=== PATIENT | female | born 1950 | race Caucasian/White ===

== ENCOUNTER → 2020-04-27 | Outpatient (REF) ==
[2020-04-27 13:45] LABS: COLLAGEN EPINEPHRINE 117 SECONDS (74-162)
== END ==
LOC: M LAB REF 13:09
DX: M47.817 Spondylosis without myelopathy or radiculopathy, lumbosacral region (principal)

== ENCOUNTER → 2021-02-05 | Outpatient (CLI) | payer OTHER ==
[~2021-02-05] MED LIST: ATOR80TA59 PO; DULO1CAP6 PO; INSUH10VL SC; LANTINJ4 SC; NORT75CA2 PO; RAMI1CAP26 PO
== END ==
LOC: M LABSMTC 10:06
PROVIDERS: ATTEND Anesthesiology
DX: Z01.818 Encounter for other preprocedural examination (principal); Z11.52 Encounter for screening for COVID-19

== ENCOUNTER 2021-02-10 11:24 | Day surgery (SDC) | payer OTHER ==
[~2021-02-10] VITALS: Ht 167.6 cm; Wt 108.5 kg
[~2021-02-10 11:24] MED LIST changes: +NS 1,000 ML IV ONE
--- NOTE | 2021-02-10 14:01 | ROOR ---
Patient Name: Annette Pickens Procedure Date: 02/10/2021 1:46 PM Date of : 1950 Age: 70 Room: [facility] Gender: Female Note Status: Finalized Procedure: Upper Endoscopy + Biopsies Indications: Heartburn, Exclusion of Vega's esophagus Providers: Siddhartha Davis MD Referring MD: KIN MÑUOZ MD Requesting Provider: Medicines: Monitored Anesthesia Care Complications: No immediate complications. Procedure: Pre-Anesthesia Assessment: - The heart rate, respiratory rate, oxygen saturations, blood pressure, adequacy of pulmonary ventilation, and response to care were monitored throughout the procedure. The Endoscope was introduced through the mouth, and advanced to the second part of duodenum. The upper GI endoscopy was accomplished without difficulty. The patient tolerated the procedure well. Findings: The Z-line was irregular and was found 45 cm from the incisors. Multiple biopsies were obtained with cold forceps for evaluation to rule out Vega's Esophagus randomly at the gastroesophageal junction. No other significant abnormalities were identified in a careful examination of the stomach. The exam of the duodenum was otherwise normal. Impression: - Z-line irregular, 45 cm from the incisors. - Multiple biopsies were obtained at the gastroesophageal junction. - The examination was otherwise normal. Recommendation: - Patient has a contact number available for emergencies. The signs and symptoms of potential delayed complications were discussed with the patient. Return to normal activities tomorrow. Written discharge instructions were provided to the patient. - High fiber diet. - Discharge patient to home. - Follow an antireflux regimen. - Continue present medications. - Await pathology results. - Telephone GI clinic for pathology results in 1 week. - Return to referring physician. - The findings and recommendations were discussed with the patient. Procedure Code(s): --- Professional --- 07837, Esophagogastroduodenoscopy, flexible, transoral; with biopsy, single or multiple Diagnosis Code(s): --- Professional --- K22.8, Other specified diseases of esophagus R12, Heartburn CPT copyright 2019 [employer]. All rights reserved. The codes documented in this report are preliminary and upon auditing coder review may be revised to meet current compliance requirements. Siddhartha Davis MD Siddhartha Davis MD 02/10/2021 2:01:17 PM Electronically signed by Siddhartha Davis MD Number of Addenda: 0 Note Initiated On: 02/10/2021 1:46 PM Estimated Blood Loss: Estimated blood loss: none.
[2021-02-10] MEDS ORDERED: propofoL 200 MG/20 ML VIAL As Ordered ONE (14:25)
[2021-02-10] MEDS ORDERED: LIDOCAINE 2% 100MG/5ML SDV (FOR ANES.) As Ordered ONE (14:25)
--- NOTE | 2021-02-10 14:28 | ROOR ---
Patient Name: Annette Pickens Procedure Date: 02/10/2021 1:47 PM Date of : 1950 Age: 70 Room: [facility] Gender: Female Note Status: Finalized Procedure: Total Colonoscopy to Cecum + Bx.+ Carbon Spot Marking Indications: Rectal bleeding, Change in bowel habits Providers: Siddhartha Davis MD Referring MD: KIN MUÑOZ MD Requesting Provider: Medicines: Monitored Anesthesia Care Complications: No immediate complications. Procedure: Pre-Anesthesia Assessment: - The heart rate, respiratory rate, oxygen saturations, blood pressure, adequacy of pulmonary ventilation, and response to care were monitored throughout the procedure. The Colonoscope was introduced through the anus and advanced to the cecum, identified by appendiceal orifice and ileocecal valve. The colonoscopy was performed without difficulty. The patient tolerated the procedure well. The quality of the bowel preparation was excellent. Findings: The perianal and digital rectal examinations were normal. Non-bleeding internal hemorrhoids were found during retroflexion. The hemorrhoids were small and Grade I (internal hemorrhoids that do not prolapse). An ulcerated partially obstructing large mass was found at 20 cm proximal to the anus. The mass was partially circumferential (involving two-thirds of the lumen circumference). The mass measured five cm in length. No bleeding was present. This was biopsied with a cold large-capacity forceps for histology. Area was successfully injected with Spot (carbon black) for tattooing. Multiple small and large-mouthed diverticula were found in the recto-sigmoid colon, sigmoid colon and descending colon. The exam was otherwise without abnormality on direct and retroflexion views. Impression: - Non-bleeding internal hemorrhoids. - Rule out malignancy, partially obstructing tumor at 20 cm proximal to the anus. Biopsied. Injected. - Diverticulosis in the recto-sigmoid colon, in the sigmoid colon and in the descending colon. - The examination was otherwise normal on direct and retroflexion views. - The exam was otherwise normal to the cecum. Recommendation: - Patient has a contact number available for emergencies. The signs and symptoms of potential delayed complications were discussed with the patient. Return to normal activities tomorrow. Written discharge instructions were provided to the patient. - Resume previous diet. - Discharge patient to home. - Continue present medications. - Await pathology results. - Telephone GI clinic for pathology results in 1 week. - Refer to a surgeon at appointment to be scheduled. - The findings and recommendations were discussed with the patient. Procedure Code(s): --- Professional --- 75430, Colonoscopy, flexible; with directed submucosal injection(s), any substance 05131, Colonoscopy, flexible; with biopsy, single or multiple Diagnosis Code(s): --- Professional --- K64.0, First degree hemorrhoids D49.0, Neoplasm of unspecified behavior of digestive system K56.690, Other partial intestinal obstruction K62.5, Hemorrhage of anus and rectum R19.4, Change in bowel habit K57.30, Diverticulosis of large intestine without perforation or abscess without bleeding CPT copyright 2019 [employer]. All rights reserved. The codes documented in this report are preliminary and upon ammonia operator review may be revised to meet current compliance requirements. Siddhartha Davis MD Siddhartha Davis MD 02/10/2021 2:27:43 PM Electronically signed by Siddhartha Davis MD Number of Addenda: 0 Note Initiated On: 02/10/2021 1:47 PM Estimated Blood Loss: Estimated blood loss: none.
[2021-02-10 14:49] VITALS: BP 166/71
== END 2021-02-10 15:00 | disposition home or self-care (01) ==
LOC: M OPP 11:24
PROVIDERS: ATTEND Internal Medicine Gastroenterology
DX: D37.4 Neoplasm of uncertain behavior of colon (principal); K22.89 Other specified disease of esophagus; K64.0 First degree hemorrhoids; K57.30 Diverticulosis of large intestine without perforation or abscess without bleeding; R19.4 Change in bowel habit; R12 Heartburn

== ENCOUNTER 2022-04-21 12:39 | Inpatient (IN) | payer MEDICARE ==
[~2022-04-21] VITALS: Ht 167.6 cm; Wt 88.3 kg
[~2022-04-21 12:39] MED LIST changes: +DEXA4TA PO; +DIPH2.5T15 PO; +DOXY-444 PO; +ELIQ5TAB PO; +ERGO500029 PO; +MAGICMW SS; +METF10004 PO; +METO25TA4 PO; -NS 1,000 ML IV ONE; +ONDA-84 PO; +ONDA8TAB8 PO; +POTA1TAB14 PO; +POTA20EL PO; +PROC10TA5 PO
[2022-04-21 15:20] LABS: BASO % 0.4 % (0.0-1.0); EOS # 0.2 10^3/uL (0.0-0.5); HEMATOCRIT 26.6 % (36.0-47.0); LYMPH # 0.9 10^3/uL (1.5-5.0); LYMPH % 15.1 % (24.0-44.0); MEAN CORPUSCULAR HEMOGLOBIN 33.2 pg (27.0-33.0); MEAN CORPUSCULAR HGB CONC 30.1 g/dl (32.0-36.5); MEAN CORPUSCULAR VOLUME 110.4 fl (80.0-96.0); MONO # 0.4 10^3/uL (0.0-0.8); MONO % 6.5 % (2.0-8.0); NEUTROPHILS # 4.2 10^3/uL (1.5-8.5); NEUTROPHILS % 74.5 % (36.0-66.0); PLATELET COUNT, AUTOMATED 103 10^3/uL (150-450); RED BLOOD COUNT 2.41 10^6/uL (4.00-5.40); WHITE BLOOD COUNT 5.7 10^3/uL (4.0-10.0)
[2022-04-21 15:31] LABS: INR 1.26; PROTHROMBIN TIME 16.1 SECONDS (12.5-14.5)
[2022-04-21] MEDS ORDERED: FAMO1TAB11 PO (15:35)
[2022-04-21] MEDS ORDERED: ASPI-523 PO (15:35)
[2022-04-21] MEDS ORDERED: KETO2CR TOP (15:35)
[2022-04-21] MEDS ORDERED: HOME MED LIST COMPLETE! XX SCH (15:40)
[2022-04-21 15:46] LABS: RSV AMPLIFICATION NEGATIVE (NEGATIVE)
[2022-04-21 15:46] LABS: BILIRUBIN,DIRECT 0.1 MG/DL (<0.4)
[2022-04-21 15:47] LABS: ALBUMIN 2.7 G/DL (3.2-5.2); ALKALINE PHOSPHATASE 301 U/L (46-116); ALT/SGPT 13 U/L (7.0-40); AST/SGOT 24 U/L (<34); BILIRUBIN,TOTAL 0.4 MG/DL (0.3-1.2); BLOOD UREA NITROGEN 20 MG/DL (9-23); CALCIUM LEVEL 7.8 MG/DL (8.3-10.6); CARBON DIOXIDE LEVEL 29 MMOL/L (20-31); CHLORIDE LEVEL 108 MMOL/L (98-107); CK-MB VALUE MASS < 1.0 NG/ML (<3.6); CPK CREATINE PHOSPHOKINASE 66 U/L (34-145); CREATININE FOR GFR 0.96 MG/DL (0.55-1.30); GLOMERULAR FILTRATION RATE > 60.0 (>39); GLUCOSE, FASTING 181 MG/DL (74-106); MB/CK RELATIVE INDEX 1.51 (< OR =4); POTASSIUM SERUM 4.1 MMOL/L (3.5-5.1); SODIUM LEVEL 145 MMOL/L (136-145); TOTAL PROTEIN 5.8 G/DL (5.7-8.2)
[2022-04-21 15:48] LABS: THYROXINE (T4) 9.3 UG/DL (4.5-10.9)
[2022-04-21 15:49] LABS: THYROID STIMULATING HORMONE 3.458 uIU/ML (0.55-4.78)
[2022-04-21] MEDS ORDERED: FUROSEMIDE 40MG/4ML VIAL IV ONE (16:15)
[2022-04-21] MEDS ORDERED: PROCHLORPERAZINE 5MG TAB PO PRN (17:30)
[2022-04-21] MEDS ORDERED: ONDANSETRON 4MG TAB PO PRN (17:30)
[2022-04-21] MEDS ORDERED: FAMOTIDINE 20 MG TAB PO PRN (17:30)
[2022-04-21] MEDS ORDERED: LOMOTIL 2.5MG/0.025MG TABLET PO PRN (17:30)
[2022-04-21] MEDS ORDERED: MAGIC MOUTHWASH SUSPENSION BTL SS PRN (17:30)
[2022-04-21] MEDS ORDERED: ACETAMINOPHEN TAB 650MG DOSE (2X325MG) PO PRN (17:40)
[2022-04-21] MEDS ORDERED: MOM 30ML SUSPENSION UDC PO PRN (17:40)
[2022-04-21] MEDS ORDERED: GLUCOSE 4GM CHEW TABLET PO PRN (18:05)
[2022-04-21] MEDS ORDERED: GLUCAGON INJ 1MG VIAL SC PRN (18:05)
[2022-04-21] MEDS ORDERED: DEXTROSE 50% 50ML SYRINGE IV PRN (18:05)
[2022-04-21] MEDS: INSULIN LISPRO (NovoLOG) PER UNIT SC SCH ×2 (18:38→21:00)
[2022-04-21] MEDS: METOPROLOL TART 25 MG TABLET PO SCH (21:09)
[2022-04-21] MEDS: APIXABAN 5 MG TAB (ELIQUIS) PO SCH (21:09)
[2022-04-21] MEDS: DOCUSATE SODIUM 100MG CAPSULE PO SCH (21:10)
[2022-04-21] MEDS: LEVEMIR (INSULIN DETEMIR) 1 UNITS/0.01ML SC SCH (21:10)
[2022-04-22 05:30] VITALS: BP 190/82
[2022-04-22 06:03] LABS: HEMATOCRIT 26.2 % (36.0-47.0); HEMOGLOBIN 7.8 g/dl (12.0-15.5); MEAN CORPUSCULAR HEMOGLOBIN 32.9 pg (27.0-33.0); MEAN CORPUSCULAR HGB CONC 29.8 g/dl (32.0-36.5); MEAN CORPUSCULAR VOLUME 110.5 fl (80.0-96.0); PLATELET COUNT, AUTOMATED 100 10^3/uL (150-450); RED BLOOD COUNT 2.37 10^6/uL (4.00-5.40); WHITE BLOOD COUNT 5.8 10^3/uL (4.0-10.0)
[2022-04-22 06:25] LABS: MAGNESIUM LEVEL 1.2 MG/DL (1.8-2.4)
[2022-04-22 06:27] LABS: CALCIUM LEVEL 7.9 MG/DL (8.3-10.6); CREATININE FOR GFR 1.12 MG/DL (0.55-1.30); GLOMERULAR FILTRATION RATE 51.2 (>39); POTASSIUM SERUM 3.7 MMOL/L (3.5-5.1)
[2022-04-22] MEDS ORDERED: MAG SULF 1GM/100ML (MAG RUN) 1 GM in IV 1 EA IV ONE (06:35)
[2022-04-22] MEDS: INSULIN LISPRO (NovoLOG) PER UNIT SC SCH ×4 (07:30→20:45)
[2022-04-22 08:00] VITALS: BP 159/70
[2022-04-22] MEDS: LEVEMIR (INSULIN DETEMIR) 1 UNITS/0.01ML SC SCH ×2 (08:48→20:47)
[2022-04-22] MEDS: KETOCONAZOLE 2% CREAM TOP SCH (08:49)
[2022-04-22] MEDS: DULoxetine 30MG CAPSULE (CYMBALTA) PO SCH (08:50)
[2022-04-22] MEDS: METOPROLOL TART 25 MG TABLET PO SCH ×2 (08:51→20:47)
[2022-04-22] MEDS: ATORVASTATIN 20 MG TAB PO SCH (08:51)
[2022-04-22] MEDS: DOCUSATE SODIUM 100MG CAPSULE PO SCH ×2 (08:51→20:46)
[2022-04-22] MEDS: NORTRIPTYLINE 25 MG CAP PO SCH (08:51)
[2022-04-22] MEDS: ASPIRIN 81MG ENTERIC TABLET PO SCH (08:51)
[2022-04-22] MEDS: APIXABAN 5 MG TAB (ELIQUIS) PO SCH ×2 (08:51→20:47)
[2022-04-22] MEDS ORDERED: BACTRIM 160MG/800MG DS TAB PO SCH (09:00)
[2022-04-22] MEDS: FUROSEMIDE 40MG/4ML VIAL IV SCH ×2 (11:55→18:50)
[2022-04-22 12:00] VITALS: BP 155/69
[2022-04-22] MEDS: MAGNESIUM OXIDE 400MG TAB (MAG-OX) PO SCH ×3 (15:56→21:53)
[2022-04-22] MEDS: cefTRIAXone SOD 2 GM in D5W MINI-BAG PLUS 50 ML IV SCH (15:56)
[2022-04-22 16:00] VITALS: BP 156/65
[2022-04-22 20:00] VITALS: BP 178/95
[2022-04-22] MEDS: DOXYCYCLINE HYCLATE 100MG TABLET PO SCH (20:46)
[2022-04-22] MEDS ORDERED: BACTRIM SUSP 160MG/800MG PER 20ML ORAL SYRINGE PO SCH (21:00)
[2022-04-22] MEDS: MAG SULF 1GM/100ML (MAG RUN) 1 GM in IV 1 EA IV SCH ×2 (21:53→23:21)
[2022-04-23] VITALS (11 sets, daily range): BP systolic 124–174; BP diastolic 58–77
[2022-04-23 04:35] LABS: HEMATOCRIT 25.5 % (36.0-47.0); HEMOGLOBIN 7.7 g/dl (12.0-15.5); MEAN CORPUSCULAR HEMOGLOBIN 32.5 pg (27.0-33.0); MEAN CORPUSCULAR HGB CONC 30.2 g/dl (32.0-36.5); MEAN CORPUSCULAR VOLUME 107.6 fl (80.0-96.0); RED BLOOD COUNT 2.37 10^6/uL (4.00-5.40); WHITE BLOOD COUNT 6.2 10^3/uL (4.0-10.0)
[2022-04-23 04:49] LABS: PLATELET COUNT, AUTOMATED 78 10^3/uL (150-450)
[2022-04-23] MEDS: MAGNESIUM OXIDE 400MG TAB (MAG-OX) PO SCH ×4 (04:49→21:25)
[2022-04-23 05:11] LABS: CALCIUM LEVEL 7.9 MG/DL (8.3-10.6); CREATININE FOR GFR 1.07 MG/DL (0.55-1.30); POTASSIUM SERUM 3.4 MMOL/L (3.5-5.1)
[2022-04-23 05:16] LABS: MAGNESIUM LEVEL 1.6 MG/DL (1.8-2.4)
[2022-04-23] MEDS ORDERED: POTASSIUM CHLORIDE 10MEQ SR TABLET PO ONE (05:30)
[2022-04-23] MEDS: MAG SULF 1GM/100ML (MAG RUN) 1 GM in IV 1 EA IV SCH ×2 (05:33→06:45)
[2022-04-23] MEDS: KCL 10MEQ/100ML SWI (KRUN) 10 MEQ in IV 1 EA IV SCH ×4 (08:08→11:41)
[2022-04-23] MEDS: INSULIN LISPRO (NovoLOG) PER UNIT SC SCH ×4 (09:03→21:00)
[2022-04-23] MEDS: LEVEMIR (INSULIN DETEMIR) 1 UNITS/0.01ML SC SCH ×2 (09:03→21:24)
[2022-04-23] MEDS: FUROSEMIDE 40MG/4ML VIAL IV SCH (09:03)
[2022-04-23] MEDS: DULoxetine 30MG CAPSULE (CYMBALTA) PO SCH (09:04)
[2022-04-23] MEDS: DOCUSATE SODIUM 100MG CAPSULE PO SCH ×2 (09:04→21:24)
[2022-04-23] MEDS: ASPIRIN 81MG ENTERIC TABLET PO SCH (09:04)
[2022-04-23] MEDS: APIXABAN 5 MG TAB (ELIQUIS) PO SCH ×2 (09:04→21:24)
[2022-04-23] MEDS: ATORVASTATIN 20 MG TAB PO SCH (09:04)
[2022-04-23] MEDS: NORTRIPTYLINE 25 MG CAP PO SCH (09:04)
[2022-04-23] MEDS: METOPROLOL TART 25 MG TABLET PO SCH ×2 (09:05→21:24)
[2022-04-23] MEDS: DOXYCYCLINE HYCLATE 100MG TABLET PO SCH ×2 (09:05→21:24)
[2022-04-23] MEDS: KETOCONAZOLE 2% CREAM TOP SCH (09:06)
[2022-04-23 10:27] LABS: APPEARANCE, URINE MANUAL HAZY (CLEAR); COLOR, URINE MANUAL YELLOW (YELLOW)
[2022-04-23 10:28] LABS: SPECIFIC GRAVITY,URINE MANUAL 1.025 (1.002-1.035)
[2022-04-23 10:29] LABS: BILIRUBIN, URINE MANUAL NEGATIVE (NEGATIVE); BLOOD URINE MANUAL POSITIVE (NEGATIVE); GLUCOSE, URINE (UA) MANUAL 2+(250 MG/DL) mg/dL (NEGATIVE); KETONE, URINE MANUAL 1+ mg/dL (NEGATIVE); LEUKOCYTE ESTERASE, URINE MAN POSITIVE (NEGATIVE); NITRITE, URINE MANUAL NEGATIVE (NEGATIVE); PROTEIN, URINE MANUAL 2+ mg/dL (NEGATIVE); UROBILINOGEN, URINE MANUAL NORMAL (NORMAL)
[2022-04-23 10:46] LABS: RBC, URINE TNTC /hpf (0-3); SQUAMOUS EPITHELIAL CELL URINE MOD AMOUNT /hpf (SMALL AMT); WBC, URINE 20-30 /hpf (0-3)
[2022-04-23 10:47] LABS: AMORPHOUS SEDIMENT, URINE MOD AMOUNT (NEGATIVE); BACTERIA, URINE MOD AMOUNT; HYALINE CAST, URINE NONE SEEN /lpf (0-1); TRANSITIONAL EPI CELLS, URINE SMALL AMOUNT /hpf
[2022-04-23 10:48] LABS: MUCUS, URINE SMALL AMOUNT (NEGATIVE)
[2022-04-23] MEDS: GASTROGRAFIN SOLUTION 30ML PO SCH ×2 (11:13→11:16)
[2022-04-23] MEDS ORDERED: ISOVUE-370 76% 100ML VIAL As Ordered ONE (13:10)
[2022-04-23] MEDS: cefTRIAXone SOD 2 GM in D5W MINI-BAG PLUS 50 ML IV SCH (14:05)
[2022-04-23 14:44] LABS: CALCIUM LEVEL 8.1 MG/DL (8.3-10.6); CREATININE FOR GFR 0.99 MG/DL (0.55-1.30); POTASSIUM SERUM 3.9 MMOL/L (3.5-5.1)
[2022-04-23] MEDS ORDERED: SENNA 8.6 MG TAB (SENOKOT) PO PRN (17:05)
[2022-04-23] MEDS: FUROSEMIDE 20MG/2ML VIAL IV SCH (18:05)
[2022-04-23] MEDS: MIRALAX *UNIT DOSE* 17GM PACKET PO SCH (18:17)
[2022-04-24 04:00] VITALS: BP 164/95
[2022-04-24] MEDS: MAGNESIUM OXIDE 400MG TAB (MAG-OX) PO SCH ×4 (04:21→21:11)
[2022-04-24 04:32] LABS: HEMATOCRIT 26.5 % (36.0-47.0); MEAN CORPUSCULAR HEMOGLOBIN 32.5 pg (27.0-33.0); MEAN CORPUSCULAR HGB CONC 30.2 g/dl (32.0-36.5); MEAN CORPUSCULAR VOLUME 107.7 fl (80.0-96.0); PLATELET COUNT, AUTOMATED 79 10^3/uL (150-450); RED BLOOD COUNT 2.46 10^6/uL (4.00-5.40); WHITE BLOOD COUNT 5.5 10^3/uL (4.0-10.0)
[2022-04-24 04:56] LABS: CALCIUM LEVEL 7.7 MG/DL (8.3-10.6); CREATININE FOR GFR 1.12 MG/DL (0.55-1.30); GLOMERULAR FILTRATION RATE 51.2 (>39); POTASSIUM SERUM 3.8 MMOL/L (3.5-5.1)
[2022-04-24 06:36] LABS: MAGNESIUM LEVEL 1.9 MG/DL (1.8-2.4)
[2022-04-24] MEDS ORDERED: POTASSIUM CHLORIDE 10MEQ SR TABLET PO ONE (07:30)
[2022-04-24 08:00] VITALS: BP 147/78
[2022-04-24] MEDS ORDERED: LACTULOSE 20GM/30ML SYRUP UDC PO ONE (09:00)
[2022-04-24] MEDS ORDERED: amLODIPine 5 MG TAB PO SCH (09:00)
[2022-04-24] MEDS: MIRALAX *UNIT DOSE* 17GM PACKET PO SCH (09:17)
[2022-04-24] MEDS: INSULIN LISPRO (NovoLOG) PER UNIT SC SCH ×4 (09:18→21:00)
[2022-04-24] MEDS: LEVEMIR (INSULIN DETEMIR) 1 UNITS/0.01ML SC SCH ×2 (09:18→21:10)
[2022-04-24] MEDS: FUROSEMIDE 20MG/2ML VIAL IV SCH ×2 (09:19→17:58)
[2022-04-24] MEDS: ATORVASTATIN 20 MG TAB PO SCH (09:19)
[2022-04-24] MEDS: METOPROLOL TART 50 MG TAB PO SCH ×2 (09:19→21:12)
[2022-04-24] MEDS: DOXYCYCLINE HYCLATE 100MG TABLET PO SCH ×2 (09:20→21:11)
[2022-04-24] MEDS: ASPIRIN 81MG ENTERIC TABLET PO SCH (09:20)
[2022-04-24] MEDS: NORTRIPTYLINE 25 MG CAP PO SCH (09:20)
[2022-04-24] MEDS: DULoxetine 30MG CAPSULE (CYMBALTA) PO SCH (09:20)
[2022-04-24] MEDS: APIXABAN 5 MG TAB (ELIQUIS) PO SCH ×2 (09:20→21:11)
[2022-04-24] MEDS: KETOCONAZOLE 2% CREAM TOP SCH (09:21)
[2022-04-24] MEDS: cefTRIAXone SOD 2 GM in D5W MINI-BAG PLUS 50 ML IV SCH (15:29)
[2022-04-24 16:00] VITALS: BP 131/63
[2022-04-24 20:00] VITALS: BP 152/93
[2022-04-25] MEDS: MAGNESIUM OXIDE 400MG TAB (MAG-OX) PO SCH ×4 (04:57→22:40)
[2022-04-25 05:00] VITALS: BP 163/79
[2022-04-25] MEDS ORDERED: VITAMIN D 50,000 UNITS CAPSULE (ERGOCALCIFEROL 1.25MG) PO SCH (09:00)
[2022-04-25] MEDS: MIRALAX *UNIT DOSE* 17GM PACKET PO SCH (09:00)
[2022-04-25] MEDS: ASPIRIN 81MG ENTERIC TABLET PO SCH (09:05)
[2022-04-25] MEDS: NORTRIPTYLINE 25 MG CAP PO SCH (09:05)
[2022-04-25] MEDS: APIXABAN 5 MG TAB (ELIQUIS) PO SCH ×2 (09:05→21:27)
[2022-04-25] MEDS: ATORVASTATIN 20 MG TAB PO SCH (09:06)
[2022-04-25] MEDS: INSULIN LISPRO (NovoLOG) PER UNIT SC SCH ×4 (09:06→21:28)
[2022-04-25] MEDS: LEVEMIR (INSULIN DETEMIR) 1 UNITS/0.01ML SC SCH ×2 (09:06→21:29)
[2022-04-25] MEDS: DULoxetine 30MG CAPSULE (CYMBALTA) PO SCH (09:06)
[2022-04-25] MEDS: DOXYCYCLINE HYCLATE 100MG TABLET PO SCH ×2 (09:06→21:27)
[2022-04-25] MEDS: FUROSEMIDE 20MG/2ML VIAL IV SCH (09:07)
[2022-04-25] MEDS: METOPROLOL TART 50 MG TAB PO SCH ×2 (09:07→21:29)
[2022-04-25] MEDS: KETOCONAZOLE 2% CREAM TOP SCH (09:07)
[2022-04-25 10:01] LABS: HEMATOCRIT 29.4 % (36.0-47.0); HEMOGLOBIN 8.5 g/dl (12.0-15.5); MEAN CORPUSCULAR HGB CONC 28.9 g/dl (32.0-36.5); MEAN CORPUSCULAR VOLUME 110.5 fl (80.0-96.0); PLATELET COUNT, AUTOMATED 108 10^3/uL (150-450); RED BLOOD COUNT 2.66 10^6/uL (4.00-5.40); WHITE BLOOD COUNT 3.9 10^3/uL (4.0-10.0)
[2022-04-25 10:19] LABS: CALCIUM LEVEL 8.4 MG/DL (8.3-10.6); CREATININE FOR GFR 1.1 MG/DL (0.55-1.30); GLOMERULAR FILTRATION RATE 52.3 (>39); POTASSIUM SERUM 4.3 MMOL/L (3.5-5.1)
[2022-04-25] MEDS: lisinopriL 5 MG TAB PO SCH (11:55)
[2022-04-25 14:00] VITALS: BP 143/71
[2022-04-25] MEDS: CEFDINIR 300 MG CAP (OMNICEF) PO SCH ×2 (14:19→21:27)
[2022-04-25] MEDS: FUROSEMIDE 20 MG TAB PO SCH (17:25)
[2022-04-25 22:00] VITALS: BP 145/70
[2022-04-26] MEDS: MAGNESIUM OXIDE 400MG TAB (MAG-OX) PO SCH ×4 (04:45→21:09)
[2022-04-26 05:07] LABS: HEMATOCRIT 27.9 % (36.0-47.0); HEMOGLOBIN 8.2 g/dl (12.0-15.5); MEAN CORPUSCULAR HEMOGLOBIN 32.5 pg (27.0-33.0); MEAN CORPUSCULAR HGB CONC 29.4 g/dl (32.0-36.5); MEAN CORPUSCULAR VOLUME 110.7 fl (80.0-96.0); PLATELET COUNT, AUTOMATED 109 10^3/uL (150-450); RED BLOOD COUNT 2.52 10^6/uL (4.00-5.40); WHITE BLOOD COUNT 3.7 10^3/uL (4.0-10.0)
[2022-04-26 05:41] LABS: BLOOD UREA NITROGEN 29 MG/DL (9-23); CALCIUM LEVEL 7.9 MG/DL (8.3-10.6); CARBON DIOXIDE LEVEL 33 MMOL/L (20-31); CHLORIDE LEVEL 106 MMOL/L (98-107); CREATININE FOR GFR 1.08 MG/DL (0.55-1.30); GLOMERULAR FILTRATION RATE 53.4 (>39); GLUCOSE, FASTING 177 MG/DL (74-106); POTASSIUM SERUM 4.4 MMOL/L (3.5-5.1); SODIUM LEVEL 144 MMOL/L (136-145)
[2022-04-26 05:46] VITALS: BP 156/65
[2022-04-26] MEDS: INSULIN LISPRO (NovoLOG) PER UNIT SC SCH ×4 (07:36→21:00)
[2022-04-26] MEDS: METOPROLOL TART 50 MG TAB PO SCH ×2 (09:00→21:11)
[2022-04-26] MEDS: MIRALAX *UNIT DOSE* 17GM PACKET PO SCH (09:00)
[2022-04-26] MEDS: NORTRIPTYLINE 25 MG CAP PO SCH (09:22)
[2022-04-26] MEDS: DULoxetine 30MG CAPSULE (CYMBALTA) PO SCH (09:22)
[2022-04-26] MEDS: DOXYCYCLINE HYCLATE 100MG TABLET PO SCH ×2 (09:22→21:09)
[2022-04-26] MEDS: ATORVASTATIN 20 MG TAB PO SCH (09:22)
[2022-04-26] MEDS: APIXABAN 5 MG TAB (ELIQUIS) PO SCH ×2 (09:22→21:10)
[2022-04-26] MEDS: ASPIRIN 81MG ENTERIC TABLET PO SCH (09:22)
[2022-04-26] MEDS: CEFDINIR 300 MG CAP (OMNICEF) PO SCH ×2 (09:22→21:09)
[2022-04-26] MEDS: LEVEMIR (INSULIN DETEMIR) 1 UNITS/0.01ML SC SCH ×2 (09:23→21:10)
[2022-04-26] MEDS: lisinopriL 5 MG TAB PO SCH (09:23)
[2022-04-26] MEDS: FUROSEMIDE 20 MG TAB PO SCH ×2 (09:24→17:12)
[2022-04-26] MEDS: KETOCONAZOLE 2% CREAM TOP SCH (09:25)
[2022-04-26 16:32] LABS: IRON (FE) 36 UG/DL (50-170); PERCENT SATURATION 14.4 % (13.2-45.0); TOTAL IRON BINDING CAPACITY 250 UG/DL (250-425)
[2022-04-26 16:34] LABS: FERRITIN 442.3 NG/ML (7.3-270.7)
[2022-04-26 16:35] LABS: VITAMIN B12 LEVEL 315 PG/ML (211-911)
[2022-04-26 16:39] LABS: FOLATE > 24.0 NG/ML (>5.4)
[2022-04-27] MEDS: MAGNESIUM OXIDE 400MG TAB (MAG-OX) PO SCH ×2 (04:50→09:52)
[2022-04-27 05:54] LABS: HEMATOCRIT 28.4 % (36.0-47.0); HEMOGLOBIN 8.3 g/dl (12.0-15.5); MEAN CORPUSCULAR HEMOGLOBIN 31.9 pg (27.0-33.0); MEAN CORPUSCULAR HGB CONC 29.2 g/dl (32.0-36.5); MEAN CORPUSCULAR VOLUME 109.2 fl (80.0-96.0); PLATELET COUNT, AUTOMATED 141 10^3/uL (150-450); WHITE BLOOD COUNT 3.5 10^3/uL (4.0-10.0)
[2022-04-27 06:00] VITALS: BP 142/58
[2022-04-27 06:08] LABS: MAGNESIUM LEVEL 2.3 MG/DL (1.8-2.4)
[2022-04-27 06:09] LABS: CALCIUM LEVEL 8.5 MG/DL (8.3-10.6); CREATININE FOR GFR 1.12 MG/DL (0.55-1.30); GLOMERULAR FILTRATION RATE 51.2 (>39); PHOSPHORUS LEVEL 3.7 MG/DL (2.4-5.1); POTASSIUM SERUM 4.3 MMOL/L (3.5-5.1)
[2022-04-27] MEDS ORDERED: SANTYL OINT 30GM TOP SCH (09:00)
[2022-04-27] MEDS: MIRALAX *UNIT DOSE* 17GM PACKET PO SCH (09:00)
[2022-04-27] MEDS: INSULIN LISPRO (NovoLOG) PER UNIT SC SCH ×2 (09:50→13:12)
[2022-04-27] MEDS: ASPIRIN 81MG ENTERIC TABLET PO SCH (09:51)
[2022-04-27] MEDS: LEVEMIR (INSULIN DETEMIR) 1 UNITS/0.01ML SC SCH (09:51)
[2022-04-27] MEDS: DULoxetine 30MG CAPSULE (CYMBALTA) PO SCH (09:51)
[2022-04-27] MEDS: DOXYCYCLINE HYCLATE 100MG TABLET PO SCH (09:52)
[2022-04-27] MEDS: APIXABAN 5 MG TAB (ELIQUIS) PO SCH (09:52)
[2022-04-27] MEDS: FUROSEMIDE 20 MG TAB PO SCH (09:52)
[2022-04-27] MEDS: NORTRIPTYLINE 25 MG CAP PO SCH (09:52)
[2022-04-27] MEDS: ATORVASTATIN 20 MG TAB PO SCH (09:52)
[2022-04-27] MEDS: lisinopriL 5 MG TAB PO SCH (09:53)
[2022-04-27 09:54] VITALS: BP 141/60
[2022-04-27] MEDS: METOPROLOL TART 50 MG TAB PO SCH (09:54)
[2022-04-27] MEDS: KETOCONAZOLE 2% CREAM TOP SCH (09:54)
[2022-04-27] MEDS ORDERED: FURO20TA2 PO (10:52)
[2022-04-27] MEDS ORDERED: AMLO1TAB25 PO (10:52)
[2022-04-27] MEDS ORDERED: LOPR1TAB6 PO (10:53)
[2022-04-27] MEDS ORDERED: MAGN400T2 PO (10:53)
[2022-04-27] MEDS ORDERED: LISI5TAB11 PO (10:53)
[2022-04-27 16:08] LABS: BODY FLUID CULTURE Not indicated. (.); LEGIONELLA ANTIGEN URINE Negative (Negative); ORGANISM ID Not indicated. (.); SPECIMEN SOURCE Urine (.); URINE STREP PNEUMONIAE ANTIGEN Negative (Negative)
== END 2022-04-27 14:46 | disposition home or self-care (01) | DRG 291 ==
LOC: M ED 15:12 → M ED INP 17:27 → ENRESERV 04-22 04:42 → M ICU 04-22 05:17 → M MSPAV 04-24 23:00
PROVIDERS: ADMIT Internal Medicine; ATTEND Internal Medicine
PROC: B246ZZZ Ultrasonography of Right and Left Heart (ICD-10-PCS; principal; 2022-04-21)
PROC: 0JDQ3ZZ Extraction of Right Foot Subcutaneous Tissue and Fascia, Percutaneous Approach (ICD-10-PCS; 2022-04-27)
DX: I11.0 Hypertensive heart disease with heart failure (principal); J18.9 Pneumonia, unspecified organism; C19 Malignant neoplasm of rectosigmoid junction; C78.7 Secondary malignant neoplasm of liver and intrahepatic bile duct; E87.0 Hyperosmolality and hypernatremia; L97.419 Non-pressure chronic ulcer of right heel and midfoot with unspecified severity; C78.00 Secondary malignant neoplasm of unspecified lung; D84.9 Immunodeficiency, unspecified; I47.1 Supraventricular tachycardia; D61.818 Other pancytopenia; R33.9 Retention of urine, unspecified; I34.0 Nonrheumatic mitral (valve) insufficiency; I50.32 Chronic diastolic (congestive) heart failure; E87.6 Hypokalemia; E83.42 Hypomagnesemia; E78.5 Hyperlipidemia, unspecified; E11.621 Type 2 diabetes mellitus with foot ulcer; Z86.711 Personal history of pulmonary embolism; Z86.718 Personal history of other venous thrombosis and embolism; I44.7 Left bundle-branch block, unspecified; Z20.822 Contact with and (suspected) exposure to COVID-19; Z79.01 Long term (current) use of anticoagulants; Z79.82 Long term (current) use of aspirin; Z79.4 Long term (current) use of insulin; Z79.84 Long term (current) use of oral hypoglycemic drugs; Z79.899 Other long term (current) drug therapy; Z88.1 Allergy status to other antibiotic agents; R91.8 Other nonspecific abnormal finding of lung field; E11.42 Type 2 diabetes mellitus with diabetic polyneuropathy

== ENCOUNTER → 2022-05-26 | Outpatient (CLI) | payer MEDICARE ==
[~2022-05-26] MED LIST changes: +AMLO1TAB25 PO; +ASPI-523 PO; +COLE625T17 PO; +FAMO1TAB11 PO; +FURO20TA2 PO; +KETO2CR TOP; +LISI5TAB11 PO; +LOPR1TAB6 PO; +MAGN400T2 PO
== END ==
LOC: M LABSMTC 07:44
PROVIDERS: ATTEND Anesthesiology
DX: Z01.812 Encounter for preprocedural laboratory examination (principal); Z11.52 Encounter for screening for COVID-19

== ENCOUNTER 2022-05-31 06:19 | Day surgery (SDC) | payer MEDICARE ==
[~2022-05-31] VITALS: Ht 167.6 cm; Wt 81.6 kg
[~2022-05-31 06:19] MED LIST changes: +CYCLOPENTOLATE 1% OPHTH SOLN 2ML BTL OD SCH; +OFLOXACIN 0.3 % (OCUFLOX) OPTH SOL 5ML OD SCH; +PHENYLEPHRINE 2.5% OPHTH SOL 2ML OD SCH; +PROPARACAINE 0.5% OPHTH SOL 15ML OD ONE; +TROPICAMIDE 1% OPHTH SOLN 15ML OD SCH
[2022-05-31] MEDS ORDERED: LIDOCAINE 1% SDV 5ML VIAL As Ordered ONE (06:38)
[2022-05-31] MEDS ORDERED: BSS IRR 500ML/OMIDRIA 4ML IRR BAG (OR ONLY) As Ordered ONE (06:38)
[2022-05-31] MEDS ORDERED: CEFUROXIME 1MG/0.1ML INTRACAMERAL INJ As Ordered ONE (06:38)
[2022-05-31] MEDS ORDERED: ACETYLCHOLINE OPHTH SOLN 1% 2ML (MIOCHOL-E) As Ordered ONE (06:42)
[2022-05-31] MEDS ORDERED: fentaNYL 100 MCG/2 ML INJECTION As Ordered ONE (11:35)
[2022-05-31] MEDS ORDERED: MIDAZOLAM INJ 2MG/2ML VIAL As Ordered ONE (11:35)
[2022-05-31] MEDS ORDERED: TRYPAN BLUE 0.06 % 2.25 ML OPHTH SYR (VISIONBLUE) As Ordered ONE (11:47)
[2022-05-31 12:20] VITALS: BP 173/81
== END 2022-05-31 12:35 | disposition home or self-care (01) ==
LOC: M SDC 06:19
PROVIDERS: ATTEND Ophthalmology
DX: H25.11 Age-related nuclear cataract, right eye (principal); E11.9 Type 2 diabetes mellitus without complications; I10 Essential (primary) hypertension; E78.5 Hyperlipidemia, unspecified; E04.1 Nontoxic single thyroid nodule; Z79.01 Long term (current) use of anticoagulants; Z85.038 Personal history of other malignant neoplasm of large intestine; Z86.718 Personal history of other venous thrombosis and embolism; D64.9 Anemia, unspecified; Z79.4 Long term (current) use of insulin; Z79.84 Long term (current) use of oral hypoglycemic drugs; Z79.899 Other long term (current) drug therapy; G43.909 Migraine, unspecified, not intractable, without status migrainosus; F41.9 Anxiety disorder, unspecified; F32.A Depression, unspecified
CPT/HCPCS: 66984; J0697; J1097; J2250; J3010; V2632

== ENCOUNTER → 2022-07-25 | Outpatient (CLI) | payer MEDICARE ==
[~2022-07-25] MED LIST changes: -CYCLOPENTOLATE 1% OPHTH SOLN 2ML BTL OD SCH; +HYDR-3713; -OFLOXACIN 0.3 % (OCUFLOX) OPTH SOL 5ML OD SCH; +OXYC-1 PO; +OXYC-517 PO; -PHENYLEPHRINE 2.5% OPHTH SOL 2ML OD SCH; +PRED1TABL PO; -PROPARACAINE 0.5% OPHTH SOL 15ML OD ONE; -TROPICAMIDE 1% OPHTH SOLN 15ML OD SCH
== END ==
LOC: M CARPUL 10:40
PROVIDERS: ATTEND Nurse Practitioner Family
DX: I50.33 Acute on chronic diastolic (congestive) heart failure (principal); I08.9 Rheumatic multiple valve disease, unspecified

== ENCOUNTER 2022-08-01 10:41 | Emergency (ER) | payer MEDICARE ==
[~2022-08-01] VITALS: Ht 167.6 cm; Wt 77.6 kg
[~2022-08-01 10:41] MED LIST changes: +POTA-298 PO; -POTA1TAB14 PO
[2022-08-01] MEDS ORDERED: NS 500 ML IV ONE (10:55)
[2022-08-01] MEDS ORDERED: METO25TA4 PO (11:03)
[2022-08-01 11:22] LABS: BASO % 0.5 % (0.0-1.0); EOS # 0.2 10^3/uL (0.0-0.5); EOS % 2.4 % (0.0-3.0); HEMATOCRIT 41.2 % (36.0-47.0); LYMPH # 0.7 10^3/uL (1.5-5.0); LYMPH % 9.4 % (24.0-44.0); MEAN CORPUSCULAR HEMOGLOBIN 28.5 pg (27.0-33.0); MEAN CORPUSCULAR HGB CONC 29.1 g/dl (32.0-36.5); MEAN CORPUSCULAR VOLUME 97.9 fl (80.0-96.0); MONO # 0.6 10^3/uL (0.0-0.8); MONO % 7.8 % (2.0-8.0); NEUTROPHILS # 5.9 10^3/uL (1.5-8.5); NEUTROPHILS % 79.5 % (36.0-66.0); PLATELET COUNT, AUTOMATED 197 10^3/uL (150-450); RED BLOOD COUNT 4.21 10^6/uL (4.00-5.40); WHITE BLOOD COUNT 7.4 10^3/uL (4.0-10.0)
[2022-08-01 11:46] LABS: INR 1.03; PROTHROMBIN TIME 13.7 SECONDS (12.5-14.5)
[2022-08-01 11:47] LABS: PARTIAL THROMBOPLASTIN TIME 28.7 SECONDS (24.8-34.2)
[2022-08-01 11:51] LABS: CK-MB VALUE MASS 1.2 NG/ML (<3.6)
[2022-08-01 11:53] LABS: ALBUMIN 3.1 G/DL (3.2-5.2); BILIRUBIN,DIRECT 0.1 MG/DL (<0.4); BILIRUBIN,TOTAL 0.3 MG/DL (0.3-1.2); CALCIUM LEVEL 8.5 MG/DL (8.3-10.6); CREATININE FOR GFR 1.6 MG/DL (0.55-1.30); GLOMERULAR FILTRATION RATE 33.9 (>39); MAGNESIUM LEVEL 1.4 MG/DL (1.8-2.4); MB/CK RELATIVE INDEX 1.76 (< OR =4); POTASSIUM SERUM 4.6 MMOL/L (3.5-5.1); TOTAL PROTEIN 6.4 G/DL (5.7-8.2)
[2022-08-01 12:08] LABS: RSV AMPLIFICATION NEGATIVE (NEGATIVE)
[2022-08-01] MEDS ORDERED: MAG SULF 1GM/100ML (MAG RUN) 1 GM in IV 1 EA IV ONE (13:00)
[2022-08-01 14:15] VITALS: BP 158/67
== END 2022-08-01 14:30 | disposition home or self-care (01) ==
LOC: EDBD 10:41 → M ED 10:41
DX: R55 Syncope and collapse (principal); T88.7XXA Unspecified adverse effect of drug or medicament, initial encounter; R94.31 Abnormal electrocardiogram [ECG] [EKG]; Z88.1 Allergy status to other antibiotic agents; I11.0 Hypertensive heart disease with heart failure; I50.9 Heart failure, unspecified; E03.9 Hypothyroidism, unspecified; C18.9 Malignant neoplasm of colon, unspecified; Z79.01 Long term (current) use of anticoagulants; Z79.4 Long term (current) use of insulin; Z79.899 Other long term (current) drug therapy
CPT/HCPCS: 36415; 71045; 80048; 80076; 82550; 82553; 83605; 83690; 83735; 84484; 85025; 85610; 85730; 87040; 87631; 93005; 93041; 96361; 96365; 99285; J3475

== ENCOUNTER 2022-08-10 11:15 | Inpatient (IN) | payer MEDICARE ==
[~2022-08-10] VITALS: Ht 167.6 cm; Wt 79.6 kg
[~2022-08-10 11:15] MED LIST changes: +AMLO1TAB24 PO; +MAGN500C2 PO; +METO1TAB87 PO; +SPIR-10 PO
[2022-08-10 14:00] VITALS: BP 171/74
[2022-08-10] MEDS ORDERED: GLUCOSE 4GM CHEW TABLET PO PRN (15:30)
[2022-08-10] MEDS ORDERED: DEXTROSE 50% 50ML SYRINGE IV PRN (15:30)
[2022-08-10] MEDS ORDERED: BISACODYL 10MG SUPP PR PRN (15:30)
[2022-08-10] MEDS ORDERED: **hydrALAZINE HCL** 25 MG TAB PO ONE (15:30)
[2022-08-10] MEDS ORDERED: GLUCAGON INJ 1MG VIAL SC PRN (15:30)
[2022-08-10] MEDS ORDERED: ACETAMINOPHEN TAB 650MG DOSE (2X325MG) PO PRN (15:30)
[2022-08-10] MEDS: LACTOBACILLUS ACIDOPHILUS CAP (BACID) PO SCH (16:55)
[2022-08-10] MEDS: INSULIN LISPRO (NovoLOG) PER UNIT SC SCH ×2 (16:56→20:24)
[2022-08-10] MEDS ORDERED: ERYTHROMYCIN OPHTH OINT OD SCH (17:00)
[2022-08-10] MEDS: POLYVINYL ALCOHOL OPHTH SOLN 15ML (LIQUITEARS) OU SCH ×2 (17:00→20:23)
[2022-08-10] MEDS: cefTRIAXone SOD 1 GM in D5W MINI-BAG PLUS 50 ML IV SCH (17:04)
[2022-08-10 20:00] VITALS: BP 162/76
[2022-08-10] MEDS: SENNA 8.6 MG TAB (SENOKOT) PO SCH (20:20)
[2022-08-10] MEDS: NORTRIPTYLINE 25 MG CAP PO SCH (20:20)
[2022-08-10] MEDS: DOCUSATE SODIUM 100MG CAPSULE PO SCH (20:20)
[2022-08-10] MEDS: APIXABAN 5 MG TAB (ELIQUIS) PO SCH (20:20)
[2022-08-10] MEDS: METOPROLOL TART 25 MG TABLET PO SCH (20:21)
[2022-08-10] MEDS: LEVEMIR (INSULIN DETEMIR) 1 UNITS/0.01ML SC SCH (20:23)
[2022-08-10] MEDS: COMBIVENT RESPIMAT 100-20MCG INHALER 4GM INH SCH (20:50)
[2022-08-10] MEDS: **hydrALAZINE HCL** 25 MG TAB PO SCH (23:13)
[2022-08-11] MEDS: **hydrALAZINE HCL** 25 MG TAB PO SCH ×4 (06:29→20:25)
[2022-08-11 06:36] VITALS: BP 182/90
[2022-08-11 07:30] VITALS: BP 196/79
[2022-08-11 07:39] LABS: BASO % 0.5 % (0.0-1.0); EOS # 0.3 10^3/uL (0.0-0.5); EOS % 4.5 % (0.0-3.0); HEMATOCRIT 35.4 % (36.0-47.0); HEMOGLOBIN 10.7 g/dl (12.0-15.5); LYMPH # 0.9 10^3/uL (1.5-5.0); LYMPH % 14.4 % (24.0-44.0); MEAN CORPUSCULAR HGB CONC 30.2 g/dl (32.0-36.5); MEAN CORPUSCULAR VOLUME 95.9 fl (80.0-96.0); MONO # 0.7 10^3/uL (0.0-0.8); MONO % 10.4 % (2.0-8.0); NEUTROPHILS # 4.5 10^3/uL (1.5-8.5); PLATELET COUNT, AUTOMATED 139 10^3/uL (150-450); RED BLOOD COUNT 3.69 10^6/uL (4.00-5.40); WHITE BLOOD COUNT 6.4 10^3/uL (4.0-10.0)
[2022-08-11 07:45] VITALS: BP 164/88
[2022-08-11 07:58] LABS: ALBUMIN 2.8 G/DL (3.2-5.2); ALKALINE PHOSPHATASE 331 U/L (46-116); ALT/SGPT 22 U/L (7.0-40); AST/SGOT 30 U/L (<34); BILIRUBIN,TOTAL 0.4 MG/DL (0.3-1.2); BLOOD UREA NITROGEN 20 MG/DL (9-23); CALCIUM LEVEL 8.6 MG/DL (8.3-10.6); CARBON DIOXIDE LEVEL 22 MMOL/L (20-31); CHLORIDE LEVEL 111 MMOL/L (98-107); CREATININE FOR GFR 0.88 MG/DL (0.55-1.30); GLOMERULAR FILTRATION RATE > 60.0 (>39); GLUCOSE, FASTING 188 MG/DL (74-106); MAGNESIUM LEVEL 1.5 MG/DL (1.8-2.4); POTASSIUM SERUM 4.8 MMOL/L (3.5-5.1); SODIUM LEVEL 141 MMOL/L (136-145); TOTAL PROTEIN 5.6 G/DL (5.7-8.2)
[2022-08-11] MEDS: INSULIN LISPRO (NovoLOG) PER UNIT SC SCH ×4 (08:37→20:27)
[2022-08-11] MEDS: LEVEMIR (INSULIN DETEMIR) 1 UNITS/0.01ML SC SCH ×2 (08:38→20:27)
[2022-08-11] MEDS: LACTOBACILLUS ACIDOPHILUS CAP (BACID) PO SCH ×2 (08:39→17:28)
[2022-08-11] MEDS: DULoxetine 30MG CAPSULE (CYMBALTA) PO SCH (08:39)
[2022-08-11] MEDS: DOCUSATE SODIUM 100MG CAPSULE PO SCH ×2 (08:39→20:25)
[2022-08-11] MEDS: APIXABAN 5 MG TAB (ELIQUIS) PO SCH ×2 (08:41→20:26)
[2022-08-11] MEDS: FAMOTIDINE 20 MG TAB PO SCH (08:42)
[2022-08-11] MEDS: METOPROLOL TART 25 MG TABLET PO SCH ×3 (08:43→20:26)
[2022-08-11] MEDS: POLYVINYL ALCOHOL OPHTH SOLN 15ML (LIQUITEARS) OU SCH ×4 (08:47→20:27)
[2022-08-11] MEDS ORDERED: MAGNESIUM OXIDE 400MG TAB (MAG-OX) PO SCH (09:00)
[2022-08-11] MEDS ORDERED: **hydrALAZINE HCL** 25 MG TAB PO SCH (09:00)
[2022-08-11] MEDS: COMBIVENT RESPIMAT 100-20MCG INHALER 4GM INH SCH ×3 (12:46→21:19)
[2022-08-11 14:00] VITALS: BP 130/64
[2022-08-11] MEDS: cefTRIAXone SOD 1 GM in D5W MINI-BAG PLUS 50 ML IV SCH (17:28)
[2022-08-11 20:00] VITALS: BP 125/67
[2022-08-11] MEDS: SENNA 8.6 MG TAB (SENOKOT) PO SCH (20:25)
[2022-08-11] MEDS: MAGNESIUM OXIDE 400MG TAB (MAG-OX) PO SCH (20:25)
[2022-08-11] MEDS: NORTRIPTYLINE 25 MG CAP PO SCH (20:26)
[2022-08-11] MEDS: RAMELTEON 8 MG TAB (ROZEREM) PO SCH (20:26)
[2022-08-12 06:00] VITALS: BP_SYST 142; BP_SYST 160; BP_DIAS 70; BP_DIAS 78
[2022-08-12] MEDS: COMBIVENT RESPIMAT 100-20MCG INHALER 4GM INH SCH ×3 (06:33→20:11)
[2022-08-12] MEDS: INSULIN LISPRO (NovoLOG) PER UNIT SC SCH ×4 (08:05→20:25)
[2022-08-12 08:12] LABS: BASO % 0.4 % (0.0-1.0); EOS # 0.3 10^3/uL (0.0-0.5); EOS % 5.1 % (0.0-3.0); HEMATOCRIT 33.8 % (36.0-47.0); HEMOGLOBIN 10.2 g/dl (12.0-15.5); LYMPH # 0.7 10^3/uL (1.5-5.0); LYMPH % 13.5 % (24.0-44.0); MEAN CORPUSCULAR HEMOGLOBIN 28.9 pg (27.0-33.0); MEAN CORPUSCULAR HGB CONC 30.2 g/dl (32.0-36.5); MEAN CORPUSCULAR VOLUME 95.8 fl (80.0-96.0); MONO # 0.5 10^3/uL (0.0-0.8); MONO % 10.2 % (2.0-8.0); NEUTROPHILS # 3.7 10^3/uL (1.5-8.5); NEUTROPHILS % 70.2 % (36.0-66.0); PLATELET COUNT, AUTOMATED 151 10^3/uL (150-450); RED BLOOD COUNT 3.53 10^6/uL (4.00-5.40); WHITE BLOOD COUNT 5.3 10^3/uL (4.0-10.0)
[2022-08-12 08:48] LABS: CREATININE FOR GFR 1.15 MG/DL (0.55-1.30); GLOMERULAR FILTRATION RATE 49.7 (>39); MAGNESIUM LEVEL 1.6 MG/DL (1.8-2.4); POTASSIUM SERUM 5.4 MMOL/L (3.5-5.1)
[2022-08-12] MEDS: LEVEMIR (INSULIN DETEMIR) 1 UNITS/0.01ML SC SCH (08:53)
[2022-08-12] MEDS: FAMOTIDINE 20 MG TAB PO SCH (08:54)
[2022-08-12] MEDS: DOCUSATE SODIUM 100MG CAPSULE PO SCH ×2 (08:54→20:25)
[2022-08-12] MEDS: LACTOBACILLUS ACIDOPHILUS CAP (BACID) PO SCH ×2 (08:54→18:14)
[2022-08-12] MEDS: APIXABAN 5 MG TAB (ELIQUIS) PO SCH ×2 (08:54→20:24)
[2022-08-12] MEDS: MAGNESIUM OXIDE 400MG TAB (MAG-OX) PO SCH ×2 (08:54→20:24)
[2022-08-12] MEDS: DULoxetine 30MG CAPSULE (CYMBALTA) PO SCH (08:54)
[2022-08-12] MEDS: METOPROLOL TART 25 MG TABLET PO SCH ×3 (08:55→20:24)
[2022-08-12] MEDS: **hydrALAZINE HCL** 25 MG TAB PO SCH ×3 (08:55→20:24)
[2022-08-12] MEDS: POLYVINYL ALCOHOL OPHTH SOLN 15ML (LIQUITEARS) OU SCH ×4 (08:55→20:26)
[2022-08-12] MEDS ORDERED: LEVEMIR (INSULIN DETEMIR) 1 UNITS/0.01ML SC ONE (10:00)
[2022-08-12 14:00] VITALS: BP 116/78
[2022-08-12] MEDS: cefTRIAXone SOD 1 GM in D5W MINI-BAG PLUS 50 ML IV SCH (18:14)
[2022-08-12 19:42] VITALS: BP 122/58
[2022-08-12] MEDS: RAMELTEON 8 MG TAB (ROZEREM) PO SCH (20:24)
[2022-08-12] MEDS: SENNA 8.6 MG TAB (SENOKOT) PO SCH (20:25)
[2022-08-12] MEDS: NORTRIPTYLINE 25 MG CAP PO SCH (20:28)
[2022-08-12] MEDS ORDERED: LEVEMIR (INSULIN DETEMIR) 1 UNITS/0.01ML SC SCH (21:00)
[2022-08-13 05:21] VITALS: BP 131/73
[2022-08-13] MEDS: INSULIN LISPRO (NovoLOG) PER UNIT SC SCH ×4 (07:27→20:04)
[2022-08-13] MEDS: COMBIVENT RESPIMAT 100-20MCG INHALER 4GM INH SCH ×3 (07:46→20:39)
[2022-08-13] MEDS: LACTOBACILLUS ACIDOPHILUS CAP (BACID) PO SCH ×2 (08:18→17:26)
[2022-08-13] MEDS: MAGNESIUM OXIDE 400MG TAB (MAG-OX) PO SCH ×2 (08:18→20:00)
[2022-08-13] MEDS: FAMOTIDINE 20 MG TAB PO SCH (08:19)
[2022-08-13] MEDS: DULoxetine 30MG CAPSULE (CYMBALTA) PO SCH (08:19)
[2022-08-13] MEDS: APIXABAN 5 MG TAB (ELIQUIS) PO SCH ×2 (08:20→20:01)
[2022-08-13] MEDS: DOCUSATE SODIUM 100MG CAPSULE PO SCH ×2 (08:20→20:01)
[2022-08-13] MEDS: LEVEMIR (INSULIN DETEMIR) 1 UNITS/0.01ML SC SCH ×2 (08:20→20:01)
[2022-08-13] MEDS: **hydrALAZINE HCL** 25 MG TAB PO SCH ×3 (08:20→20:05)
[2022-08-13] MEDS: METOPROLOL TART 25 MG TABLET PO SCH ×3 (08:20→20:04)
[2022-08-13] MEDS: POLYVINYL ALCOHOL OPHTH SOLN 15ML (LIQUITEARS) OU SCH ×4 (08:21→20:03)
[2022-08-13 14:00] VITALS: BP 118/56
[2022-08-13 20:00] VITALS: BP 100/51
[2022-08-13] MEDS: AMOXICILLIN 875 MG TAB PO SCH (20:00)
[2022-08-13] MEDS: RAMELTEON 8 MG TAB (ROZEREM) PO SCH (20:00)
[2022-08-13] MEDS: SENNA 8.6 MG TAB (SENOKOT) PO SCH (20:01)
[2022-08-13] MEDS: ERYTHROMYCIN OPHTH OINT OD SCH (20:02)
[2022-08-13] MEDS: NORTRIPTYLINE 25 MG CAP PO SCH (20:28)
[2022-08-14 06:00] VITALS: BP 138/66
[2022-08-14] MEDS: COMBIVENT RESPIMAT 100-20MCG INHALER 4GM INH SCH ×3 (07:11→19:20)
[2022-08-14] MEDS: MAGNESIUM OXIDE 400MG TAB (MAG-OX) PO SCH ×2 (08:17→21:30)
[2022-08-14] MEDS: DULoxetine 30MG CAPSULE (CYMBALTA) PO SCH (08:17)
[2022-08-14] MEDS: INSULIN LISPRO (NovoLOG) PER UNIT SC SCH ×4 (08:17→21:00)
[2022-08-14] MEDS: AMOXICILLIN 875 MG TAB PO SCH ×2 (08:17→21:29)
[2022-08-14] MEDS: LACTOBACILLUS ACIDOPHILUS CAP (BACID) PO SCH ×2 (08:17→17:55)
[2022-08-14] MEDS: FAMOTIDINE 20 MG TAB PO SCH (08:18)
[2022-08-14] MEDS: LEVEMIR (INSULIN DETEMIR) 1 UNITS/0.01ML SC SCH ×2 (08:18→21:31)
[2022-08-14] MEDS: METOPROLOL TART 25 MG TABLET PO SCH ×3 (08:18→21:31)
[2022-08-14] MEDS: **hydrALAZINE HCL** 25 MG TAB PO SCH ×3 (08:19→21:29)
[2022-08-14] MEDS: APIXABAN 5 MG TAB (ELIQUIS) PO SCH ×2 (08:19→21:29)
[2022-08-14] MEDS: POLYVINYL ALCOHOL OPHTH SOLN 15ML (LIQUITEARS) OU SCH ×4 (08:19→21:32)
[2022-08-14] MEDS: DOCUSATE SODIUM 100MG CAPSULE PO SCH ×2 (08:19→21:29)
[2022-08-14] MEDS: ERYTHROMYCIN OPHTH OINT OD SCH ×4 (08:20→21:32)
[2022-08-14 13:59] VITALS: BP 150/67
[2022-08-14 20:00] VITALS: BP 153/65
[2022-08-14] MEDS: RAMELTEON 8 MG TAB (ROZEREM) PO SCH (21:29)
[2022-08-14] MEDS: SENNA 8.6 MG TAB (SENOKOT) PO SCH (21:29)
[2022-08-14] MEDS: NORTRIPTYLINE 25 MG CAP PO SCH (21:31)
[2022-08-15 06:00] VITALS: BP 159/67
[2022-08-15 07:13] LABS: BASO % 0.6 % (0.0-1.0); EOS # 0.2 10^3/uL (0.0-0.5); EOS % 7.2 % (0.0-3.0); HEMATOCRIT 35.2 % (36.0-47.0); HEMOGLOBIN 10.4 g/dl (12.0-15.5); LYMPH # 0.8 10^3/uL (1.5-5.0); LYMPH % 24.6 % (24.0-44.0); MEAN CORPUSCULAR HEMOGLOBIN 28.4 pg (27.0-33.0); MEAN CORPUSCULAR HGB CONC 29.5 g/dl (32.0-36.5); MEAN CORPUSCULAR VOLUME 96.2 fl (80.0-96.0); MONO # 0.3 10^3/uL (0.0-0.8); MONO % 7.8 % (2.0-8.0); NEUTROPHILS % 59.5 % (36.0-66.0); PLATELET COUNT, AUTOMATED 179 10^3/uL (150-450); RED BLOOD COUNT 3.66 10^6/uL (4.00-5.40); WHITE BLOOD COUNT 3.3 10^3/uL (4.0-10.0)
[2022-08-15] MEDS: COMBIVENT RESPIMAT 100-20MCG INHALER 4GM INH SCH ×3 (07:39→19:48)
[2022-08-15] MEDS: DULoxetine 30MG CAPSULE (CYMBALTA) PO SCH (07:42)
[2022-08-15] MEDS: MAGNESIUM OXIDE 400MG TAB (MAG-OX) PO SCH ×2 (07:42→20:51)
[2022-08-15] MEDS: **hydrALAZINE HCL** 25 MG TAB PO SCH ×3 (07:43→20:51)
[2022-08-15] MEDS: FAMOTIDINE 20 MG TAB PO SCH (07:43)
[2022-08-15] MEDS: LACTOBACILLUS ACIDOPHILUS CAP (BACID) PO SCH ×2 (07:43→16:38)
[2022-08-15] MEDS: APIXABAN 5 MG TAB (ELIQUIS) PO SCH ×2 (07:43→20:50)
[2022-08-15] MEDS: METOPROLOL TART 25 MG TABLET PO SCH ×3 (07:44→20:51)
[2022-08-15] MEDS: AMOXICILLIN 875 MG TAB PO SCH ×2 (07:44→20:51)
[2022-08-15] MEDS: DOCUSATE SODIUM 100MG CAPSULE PO SCH ×2 (07:44→20:50)
[2022-08-15] MEDS: LEVEMIR (INSULIN DETEMIR) 1 UNITS/0.01ML SC SCH ×2 (07:45→20:52)
[2022-08-15] MEDS: ERYTHROMYCIN OPHTH OINT OD SCH ×4 (07:45→20:52)
[2022-08-15] MEDS: POLYVINYL ALCOHOL OPHTH SOLN 15ML (LIQUITEARS) OU SCH ×4 (07:45→20:52)
[2022-08-15 07:48] LABS: CALCIUM LEVEL 8.4 MG/DL (8.3-10.6); CREATININE FOR GFR 1.11 MG/DL (0.55-1.30); GLOMERULAR FILTRATION RATE 51.7 (>39); MAGNESIUM LEVEL 1.9 MG/DL (1.8-2.4); POTASSIUM SERUM 5.9 MMOL/L (3.5-5.1)
[2022-08-15] MEDS: INSULIN LISPRO (NovoLOG) PER UNIT SC SCH ×4 (07:49→20:52)
[2022-08-15 14:00] VITALS: BP 136/60
[2022-08-15 16:36] VITALS: BP 137/72
[2022-08-15 20:00] VITALS: BP 153/66
[2022-08-15] MEDS: SENNA 8.6 MG TAB (SENOKOT) PO SCH (20:50)
[2022-08-15] MEDS: RAMELTEON 8 MG TAB (ROZEREM) PO SCH (20:51)
[2022-08-15] MEDS: NORTRIPTYLINE 25 MG CAP PO SCH (20:51)
[2022-08-16 06:00] VITALS: BP 134/60
[2022-08-16] MEDS: POLYVINYL ALCOHOL OPHTH SOLN 15ML (LIQUITEARS) OU SCH ×4 (07:33→20:12)
[2022-08-16] MEDS: LEVEMIR (INSULIN DETEMIR) 1 UNITS/0.01ML SC SCH ×2 (07:34→20:12)
[2022-08-16] MEDS: ERYTHROMYCIN OPHTH OINT OD SCH ×4 (07:34→20:12)
[2022-08-16] MEDS: INSULIN LISPRO (NovoLOG) PER UNIT SC SCH ×4 (07:34→19:40)
[2022-08-16] MEDS: **hydrALAZINE HCL** 25 MG TAB PO SCH ×3 (07:34→20:11)
[2022-08-16] MEDS: FAMOTIDINE 20 MG TAB PO SCH (07:35)
[2022-08-16] MEDS: METOPROLOL TART 25 MG TABLET PO SCH ×3 (07:35→20:11)
[2022-08-16] MEDS: LACTOBACILLUS ACIDOPHILUS CAP (BACID) PO SCH ×2 (07:35→17:33)
[2022-08-16] MEDS: DULoxetine 30MG CAPSULE (CYMBALTA) PO SCH (07:35)
[2022-08-16] MEDS: AMOXICILLIN 875 MG TAB PO SCH ×2 (07:35→20:10)
[2022-08-16] MEDS: MAGNESIUM OXIDE 400MG TAB (MAG-OX) PO SCH ×2 (07:35→20:11)
[2022-08-16] MEDS: DOCUSATE SODIUM 100MG CAPSULE PO SCH ×2 (07:35→20:10)
[2022-08-16] MEDS: APIXABAN 5 MG TAB (ELIQUIS) PO SCH ×2 (07:36→20:10)
[2022-08-16] MEDS: COMBIVENT RESPIMAT 100-20MCG INHALER 4GM INH SCH ×3 (07:37→20:00)
[2022-08-16 14:00] VITALS: BP 156/72
[2022-08-16] MEDS ORDERED: SOD POLYSTYRENE SULFONATE SUSP 15GM 60ML UD PO ONE (16:35)
[2022-08-16] MEDS ORDERED: PATIROMER SORBITEX CALCIUM 8.4 GM POWDER PACKET (VELTASSA) PO ONE (16:35)
[2022-08-16] MEDS: NS 1,000 ML IV SCH (17:34)
[2022-08-16 20:00] VITALS: BP 124/63
[2022-08-16] MEDS: RAMELTEON 8 MG TAB (ROZEREM) PO SCH (20:10)
[2022-08-16] MEDS: NORTRIPTYLINE 25 MG CAP PO SCH (20:11)
[2022-08-16] MEDS: SENNA 8.6 MG TAB (SENOKOT) PO SCH (20:12)
[2022-08-16 23:57] LABS: CALCIUM LEVEL 8.5 MG/DL (8.3-10.6); CREATININE FOR GFR 1.18 MG/DL (0.55-1.30); GLOMERULAR FILTRATION RATE 48.2 (>39); POTASSIUM SERUM 5.6 MMOL/L (3.5-5.1)
[2022-08-17 06:00] VITALS: BP 177/71
[2022-08-17 07:03] LABS: BLOOD UREA NITROGEN 28 MG/DL (9-23); CARBON DIOXIDE LEVEL 27 MMOL/L (20-31); CHLORIDE LEVEL 112 MMOL/L (98-107); CREATININE FOR GFR 0.96 MG/DL (0.55-1.30); GLOMERULAR FILTRATION RATE > 60.0 (>39); GLUCOSE, FASTING 283 MG/DL (74-106); POTASSIUM SERUM 5.3 MMOL/L (3.5-5.1); SODIUM LEVEL 144 MMOL/L (136-145)
[2022-08-17] MEDS: COMBIVENT RESPIMAT 100-20MCG INHALER 4GM INH SCH ×3 (07:12→19:18)
[2022-08-17] MEDS: INSULIN LISPRO (NovoLOG) PER UNIT SC SCH ×4 (08:39→20:58)
[2022-08-17] MEDS: DULoxetine 30MG CAPSULE (CYMBALTA) PO SCH (08:40)
[2022-08-17] MEDS: MAGNESIUM OXIDE 400MG TAB (MAG-OX) PO SCH ×2 (08:40→20:56)
[2022-08-17] MEDS: DOCUSATE SODIUM 100MG CAPSULE PO SCH ×3 (08:40→21:00)
[2022-08-17] MEDS: LACTOBACILLUS ACIDOPHILUS CAP (BACID) PO SCH ×2 (08:40→17:26)
[2022-08-17] MEDS: AMOXICILLIN 875 MG TAB PO SCH (08:40)
[2022-08-17] MEDS: LEVEMIR (INSULIN DETEMIR) 1 UNITS/0.01ML SC SCH ×2 (08:40→21:05)
[2022-08-17] MEDS: FAMOTIDINE 20 MG TAB PO SCH (08:41)
[2022-08-17] MEDS: APIXABAN 5 MG TAB (ELIQUIS) PO SCH ×2 (08:42→20:57)
[2022-08-17] MEDS: ERYTHROMYCIN OPHTH OINT OD SCH ×4 (08:43→20:59)
[2022-08-17] MEDS: POLYVINYL ALCOHOL OPHTH SOLN 15ML (LIQUITEARS) OU SCH ×4 (08:43→20:59)
[2022-08-17] MEDS: METOPROLOL TART 25 MG TABLET PO SCH ×3 (08:44→20:57)
[2022-08-17] MEDS: **hydrALAZINE HCL** 25 MG TAB PO SCH (08:44)
[2022-08-17] MEDS: NS 1,000 ML IV SCH (09:15)
[2022-08-17] MEDS ORDERED: SOD POLYSTYRENE SULFONATE SUSP 15GM 60ML UD PO ONE (12:00)
[2022-08-17 14:00] VITALS: BP 111/66
[2022-08-17] MEDS ORDERED: PATIROMER SORBITEX CALCIUM 8.4 GM POWDER PACKET (VELTASSA) PO ONE (14:00)
[2022-08-17 20:00] VITALS: BP 173/81
[2022-08-17] MEDS: NORTRIPTYLINE 25 MG CAP PO SCH (20:55)
[2022-08-17] MEDS: RAMELTEON 8 MG TAB (ROZEREM) PO SCH (20:56)
[2022-08-17] MEDS: SENNA 8.6 MG TAB (SENOKOT) PO SCH ×2 (20:57→21:00)
[2022-08-18 06:00] VITALS: BP 185/86
[2022-08-18 07:28] LABS: BLOOD UREA NITROGEN 24 MG/DL (9-23); CALCIUM LEVEL 8.1 MG/DL (8.3-10.6); CARBON DIOXIDE LEVEL 28 MMOL/L (20-31); CHLORIDE LEVEL 112 MMOL/L (98-107); CREATININE FOR GFR 0.91 MG/DL (0.55-1.30); GLOMERULAR FILTRATION RATE > 60.0 (>39); GLUCOSE, FASTING 134 MG/DL (74-106); POTASSIUM SERUM 4.2 MMOL/L (3.5-5.1); SODIUM LEVEL 146 MMOL/L (136-145)
[2022-08-18] MEDS: COMBIVENT RESPIMAT 100-20MCG INHALER 4GM INH SCH (07:28)
[2022-08-18] MEDS: LEVEMIR (INSULIN DETEMIR) 1 UNITS/0.01ML SC SCH (08:18)
[2022-08-18] MEDS: LACTOBACILLUS ACIDOPHILUS CAP (BACID) PO SCH (08:19)
[2022-08-18] MEDS: FAMOTIDINE 20 MG TAB PO SCH (08:19)
[2022-08-18] MEDS: INSULIN LISPRO (NovoLOG) PER UNIT SC SCH (08:19)
[2022-08-18 08:22] VITALS: BP 128/69
[2022-08-18] MEDS: APIXABAN 5 MG TAB (ELIQUIS) PO SCH (08:22)
[2022-08-18] MEDS: METOPROLOL TART 25 MG TABLET PO SCH (08:22)
[2022-08-18] MEDS: MAGNESIUM OXIDE 400MG TAB (MAG-OX) PO SCH (08:22)
[2022-08-18] MEDS: ERYTHROMYCIN OPHTH OINT OD SCH (08:23)
[2022-08-18] MEDS: DULoxetine 30MG CAPSULE (CYMBALTA) PO SCH (08:23)
[2022-08-18] MEDS: POLYVINYL ALCOHOL OPHTH SOLN 15ML (LIQUITEARS) OU SCH (08:23)
[2022-08-18] MEDS: DOCUSATE SODIUM 100MG CAPSULE PO SCH (08:24)
[2022-08-18] MEDS ORDERED: FAMO1TAB11 PO (10:49)
[2022-08-18] MEDS ORDERED: ELIQ5TAB PO (10:49)
[2022-08-18] MEDS ORDERED: LANTINJ4 SC (10:49)
[2022-08-18] MEDS ORDERED: DULO1CAP6 PO (10:49)
[2022-08-18] MEDS ORDERED: METO1TAB87 PO (10:49)
[2022-08-18] MEDS ORDERED: AMLO25TA PO (10:49)
[2022-08-18] MEDS ORDERED: NORT75CA2 PO (10:49)
[2022-08-18] MEDS ORDERED: HYDR10TAB PO (10:51)
== END 2022-08-18 11:55 | disposition home health service (06) | DRG 683 ==
LOC: M PM&R 14:10
PROVIDERS: ADMIT Physical Medicine & Rehabilitation; ATTEND Physical Medicine & Rehabilitation
DX: N17.9 Acute kidney failure, unspecified (principal); C19 Malignant neoplasm of rectosigmoid junction; C78.7 Secondary malignant neoplasm of liver and intrahepatic bile duct; N39.0 Urinary tract infection, site not specified; I95.9 Hypotension, unspecified; I50.9 Heart failure, unspecified; I11.0 Hypertensive heart disease with heart failure; R55 Syncope and collapse; B34.8 Other viral infections of unspecified site; R11.2 Nausea with vomiting, unspecified; E86.0 Dehydration; R53.1 Weakness; E11.621 Type 2 diabetes mellitus with foot ulcer; L97.519 Non-pressure chronic ulcer of other part of right foot with unspecified severity; E78.5 Hyperlipidemia, unspecified; H10.9 Unspecified conjunctivitis; I48.0 Paroxysmal atrial fibrillation; E83.42 Hypomagnesemia; K21.9 Gastro-esophageal reflux disease without esophagitis; G62.0 Drug-induced polyneuropathy; E11.42 Type 2 diabetes mellitus with diabetic polyneuropathy; S72.112D Displaced fracture of greater trochanter of left femur, subsequent encounter for closed fracture with routine healing; F41.9 Anxiety disorder, unspecified; F32.A Depression, unspecified; K59.00 Constipation, unspecified; E88.3 Tumor lysis syndrome; E87.5 Hyperkalemia; Z74.1 Need for assistance with personal care; Z74.09 Other reduced mobility; Z86.718 Personal history of other venous thrombosis and embolism; Z86.711 Personal history of pulmonary embolism; Z88.1 Allergy status to other antibiotic agents; Z79.899 Other long term (current) drug therapy; Z79.01 Long term (current) use of anticoagulants; Z79.4 Long term (current) use of insulin